=== PATIENT | male | born 1970 | race Caucasian/White ===

== ENCOUNTER 2022-04-02 12:37 | Emergency (ER) | payer OTHER ==
[2022-04-02] MEDS ORDERED: NAPROXEN500 MG PO (15:49)
[2022-04-02] MEDS ORDERED: BACLOFEN 10MG T10 MG PO (15:49)
== END 2022-04-02 15:59 | disposition home or self-care (01) ==
LOC: FER 12:37
DX: S00.81XA Abrasion of other part of head, initial encounter (principal); R07.9 Chest pain, unspecified; R91.8 Other nonspecific abnormal finding of lung field; F17.210 Nicotine dependence, cigarettes, uncomplicated; V49.50XA Passenger injured in collision with unspecified motor vehicles in traffic accident, initial encounter; Y92.89 Other specified places as the place of occurrence of the external cause
CPT/HCPCS: 70450; 71101; 72125; 72128